=== PATIENT | male | born 1940 | race Caucasian/White ===

== ENCOUNTER 2018-02-08 06:39 | Emergency (ER) | payer OTHER, BC ==
[2018-02-08] MEDS ORDERED: NS 1,000 ML IV ONE (07:06)
[2018-02-08] MEDS ORDERED: DOXYCYCLINE HYCLATE 100 MG CAP/TAB PO ONE (07:11)
--- NOTE | 2018-02-08 07:13 | EDPHY ---
H & P Stated Complaint: c/o possible cellulitic infx on R neck x 1 week Time Seen by Provider: 02/08/18 06:58 HPI/ROS: CHIEF COMPLAINT: Neck infection HISTORY OF PRESENT ILLNESS: Patient is a 77-year-old man who lives in [place] comes to the emergency department complaining of swelling and erythema to his right anterior neck. He states that about 5 days ago he noticed a rubbery lump on the anterior neck. It is not erythematous and nontender. He did not have any fevers or malaise. Over the next few days it became slightly erythematous and tender. He presented to the urgent care and was started on Bactrim. He states that this is not helped and a discontinue to worsen and is now starting to spread through skin. No fevers. No diaphoresis. No trauma. No difficulty swallowing. He states that he is constantly exposed to ticks [place] and has had Lyme disease several times. He has always been treated successfully in the past. No history of cancer. REVIEW OF SYSTEMS: Constitutional: denies: chills, fever, recent illness, recent injury EENTM: denies: blurred vision, double vision, nose congestion Respiratory: denies: cough, shortness of breath Cardiac: denies: chest pain, irregular heart rate, lightheadedness, palpitations Gastrointestinal/Abdominal: denies: abdominal pain, diarrhea, nausea, vomiting, blood streaked stools Genitourinary: denies: dysuria, frequency, hematuria, pain Musculoskeletal: denies: joint pain, muscle pain Skin: See HPI Neurological: denies: headache, numbness, paresthesia, tingling, dizziness, weakness Hematologic/Lymphatic: denies: blood clots, easy bleeding, easy bruising Immunologic/allergic: denies: HIV/AIDS, transplant EXAM: GENERAL: Well-appearing, well-nourished and in no acute distress. HEAD: Atraumatic, normocephalic. EYES: Pupils equal round and reactive to light, extraocular movements intact, sclera anicteric, conjunctiva are normal. ENT: TMs normal, nares patent, oropharynx clear without exudates. Moist mucous membranes. NECK: Normal range of motion, supple without lymphadenopathy or JVD. LUNGS: Breath sounds clear to auscultation bilaterally and equal. No wheezes rales or rhonchi. HEART: Regular rate and rhythm without murmurs, rubs or gallops. ABDOMEN: Soft, nontender, normoactive bowel sounds. No guarding, no rebound. No masses appreciated. BACK: No CVA tenderness, no spinal tenderness, step-offs or deformities EXTREMITIES: Normal range of motion, no pitting or edema. No clubbing or cyanosis. NEUROLOGICAL: Cranial nerves II through XII grossly intact. Normal speech, normal gait. 5/5 strength, normal movement in all extremities, normal sensation PSYCH: Normal mood, normal affect. SKIN: Central rubbery firm lesion right anterior neck that is erythematous but not tender and not fluctuant. 2 x 3 cm oval in shape with surrounding erythema extending an additional 5 cm in each direction. No purulence. Slightly warm to the touch. Source: Patient Exam Limitations: No limitations - Medical/Surgical History Hx Asthma: No Hx Chronic Respiratory Disease: No Hx Diabetes: No Hx Cardiac Disease: Yes Hx Renal Disease: No Hx Cirrhosis: No Hx Alcoholism: No Hx HIV/AIDS: No Hx Splenectomy or Spleen Trauma: No Other PMH: hyperlipidemia, tonsillectomy, prostate ca - prostatectomy, R knee surg - Family History Significant Family History: No pertinent family hx - Social History Smoking Status: Never smoked Alcohol Use: Sober Drug Use: None Constitutional: Initial Vital Signs Temperature (C) 36.6 C 02/08/18 06:45 Heart Rate 59 L 02/08/18 06:45 Respiratory Rate 16 02/08/18 06:45 Blood Pressure 167/92 H 02/08/18 06:45 O2 Sat (%) 94 02/08/18 06:45 O2 Delivery Mode Room Air Allergies/Adverse Reactions: No Known Allergies Allergy (Unverified 02/08/18 06:51) Home Medications: Medication Instructions Recorded Atorvastatin Calcium 02/08/18 Bactrim DS 02/08/18 Cephalexin [Keflex] 500 mg PO Q6H #28 cap 02/08/18 Cephalexin [Keflex] 500 mg PO Q6H #28 cap 02/08/18 Medical Decision Making - Diagnostics Imaging Results: Imaging Impressions Neck CT 02/08/18 07:05 Impression: 1. Right neck cellulitis. 2. No drainable abscess or significant adenopathy. 3. Mild atherosclerotic carotid disease without significant stenosis. 4. Benign subcentimeter thyroid nodule. 5. Cervical spondylosis. Findings and recommendations discussed with Emergency Department physician, Maximino Schulz, at 8:51 a.m., 02/08/2018. Final report concurs with initial preliminary interpretation. Imaging: Discussed imaging studies w/ call worker Radiologist ED Course/Re-evaluation: Patient appears to have cellulitis on his CT scan. This is not really typical target lesion for Lyme disease. I did give him a dose of doxycycline while he was here. I will have him continue taking Bactrim and add Keflex for cellulitis. This should also cover Lyme disease as well. Patient is reassured by this. I will give him a dose of Rocephin while he is here. Differential Diagnosis: Partial list of the Differential diagnosis considered include but were not limited to; Lyme disease, cellulitis, abscess, necrotic lymph node and although unlikely based on the history and physical exam, I also considered cancer, hemorrhage, dissection, aneurysm. I discussed these differential diagnoses and the plan with the patient as well as the usual and expected course. The patient understands that the diagnosis is provisional and that in medicine we are not always correct and that further workup is often warranted. Usual and customary warnings were given. All of the patient's questions were answered. The patient was instructed to return to the emergency department should the symptoms at all worsen or return, otherwise to followup with the physician as we discussed. - Data Points Laboratory Results: Laboratory Results 02/08/18 07:20 02/08/18 07:20 02/08/18 02/08/18 02/08/18 07:27 07:20 07:20 WBC 6.40 10^3/uL 10^3/uL (3.80-9.50) RBC 4.78 10^6/uL 10^6/uL (4.40-6.38) Hgb 14.9 g/dL g/dL (13.7-17.5) POC Hgb 15.0 gm/dL gm/dL (13.7-17.5) Hct 43.7 % % (40.0-51.0) POC Hct 44 % % (40-51) MCV 91.4 fL fL (81.5-99.8) MCH 31.2 pg pg (27.9-34.1) MCHC 34.1 g/dL g/dL (32.4-36.7) RDW 12.2 % % (11.5-15.2) Plt Count 159 10^3/uL 10^3/uL (150-400) MPV 11.0 fL fL (8.7-11.7) Neut % (Auto) 66.8 % % (39.3-74.2) Lymph % (Auto) 22.7 % % (15.0-45.0) [place] % (Auto) 8.6 % % (4.5-13.0) Eos % (Auto) 1.1 % % (0.6-7.6) Baso % (Auto) 0.3 % % (0.3-1.7) Nucleat RBC Rel Count 0.0 % % (0.0-0.2) Absolute Neuts (auto) 4.28 10^3/uL 10^3/uL (1.70-6.50) Absolute Lymphs (auto) 1.45 10^3/uL 10^3/uL (1.00-3.00) Absolute Monos (auto) 0.55 10^3/uL 10^3/uL (0.30-0.80) Absolute Eos (auto) 0.07 10^3/uL 10^3/uL (0.03-0.40) Absolute Basos (auto) 0.02 10^3/uL 10^3/uL (0.02-0.10) Absolute Nucleated RBC 0.00 10^3/uL 10^3/uL (0-0.01) Immature Gran % 0.5 % % (0.0-1.1) Immature Gran # 0.03 10^3/uL 10^3/uL (0.00-0.10) VBG Lactic Acid POC Sodium 142 mEq/L mEq/L (135-145) Sodium 142 mEq/L mEq/L (135-145) POC Potassium 4.5 mEq/L mEq/L (3.3-5.0) Potassium 4.8 mEq/L mEq/L (3.3-5.0) POC Chloride 105 mEq/L mEq/L (97-110) Chloride 104 mEq/L mEq/L (97-110) Carbon Dioxide 27 mEq/l mEq/l (22-31) Anion Gap 11 mEq/L mEq/L (8-16) POC BUN 22 mg/dL mg/dL (7-23) BUN 21 mg/dL mg/dL (7-23) Creatinine 1.3 mg/dL mg/dL (0.7-1.3) POC Creatinine 1.5 mg/dL H mg/dL (0.7-1.3) Estimated GFR 53 Glucose 107 mg/dL H mg/dL (70-100) POC Glucose 113 mg/dL H mg/dL (70-100) Calcium 8.9 mg/dL mg/dL (8.5-10.4) 02/08/18 07:20 WBC RBC Hgb POC Hgb Hct POC Hct MCV MCH MCHC RDW Plt Count MPV Neut % (Auto) Lymph % (Auto) [place] % (Auto) Eos % (Auto) Baso % (Auto) Nucleat RBC Rel Count Absolute Neuts (auto) Absolute Lymphs (auto) Absolute Monos (auto) Absolute Eos (auto) Absolute Basos (auto) Absolute Nucleated RBC Immature Gran % Immature Gran # VBG Lactic Acid 1.5 mmol/L mmol/L (0.7-2.1) POC Sodium Sodium POC Potassium Potassium POC Chloride Chloride Carbon Dioxide Anion Gap POC BUN BUN Creatinine POC Creatinine Estimated GFR Glucose POC Glucose Calcium Medications Given: Discontinued Medications Doxycycline Hyclate (Doxycycline Hyclate) 100 mg PO EDNOW ONE PRN Reason: Protocol Stop: 02/08/18 07:12 Last Admin: 02/08/18 07:41 Dose: 100 mg Sodium Chloride (Ns) 1,000 mls @ 0 mls/hr IV ONCE ONE; Wide Open PRN Reason: Protocol Stop: 02/08/18 07:07 Last Admin: 02/08/18 07:40 Dose: 1,000 mls Ceftriaxone Sodium/Dextrose (Rocephin 1 Gm (Premix)) 50 mls @ 100 mls/hr IV EDNOW ONE PRN Reason: Protocol Stop: 02/08/18 09:20 Last Admin: 02/08/18 08:59 Dose: 50 mls Point of Care Test Results: Chemistry 02/08/18 07:27 POC Sodium 142 mEq/L mEq/L (135-145) POC Potassium 4.5 mEq/L mEq/L (3.3-5.0) POC Chloride 105 mEq/L mEq/L (97-110) POC BUN 22 mg/dL mg/dL (7-23) POC Creatinine 1.5 mg/dL H mg/dL (0.7-1.3) POC Glucose 113 mg/dL H mg/dL (70-100) ISTAT H&H 02/08/18 07:27 POC Hgb 15.0 gm/dL gm/dL (13.7-17.5) POC Hct 44 % % (40-51) Departure - Departure Disposition: Home, Routine, Self-Care Clinical Impression: Cellulitis Qualifiers: Site of cellulitis: neck Qualified Code(s): L03.221 - Cellulitis of neck Condition: Fair Instructions: Cellulitis (ED) Referrals: NONE *PRIMARY CARE P,. [Primary Care Provider] - As per Instructions Prescriptions: Cephalexin [Keflex] 500 mg PO Q6H #28 cap Cephalexin [Keflex] 500 mg PO Q6H #28 cap
[2018-02-08] MEDS ORDERED: IOPAMIDOL (ISOVUE-300) 100 ML BTL ONE (07:38)
[2018-02-08 08:25] LABS: PLATELET COUNT 159 10^3/uL (150-400)
[2018-02-08 09:42] VITALS: BP 155/74
== END 2018-02-08 09:49 | disposition home or self-care (01) ==
DX: L03.221 Cellulitis of neck (principal); E86.9 Volume depletion, unspecified; Z85.46 Personal history of malignant neoplasm of prostate
CPT/HCPCS: 70491; 96361; 96365; 99285; J0696; Q9967; 82435-PO; 82565-PO; 82947-PO; 84132-PO; 84295-PO; 84520-PO; 85014-PO